=== PATIENT | male | born 1940 | race Caucasian/White ===

== ENCOUNTER 2019-01-27 12:37 | Emergency (ER) | payer MEDICARE ==
[~2019-01-27 12:37] MED LIST: ISOVUE-370 76%-LOCM 1 ML ONE
[2019-01-27 14:27] LABS: #Eosinphils 0.1 thou/uL (0.0-0.7); #Lymphocytes 0.7 thou/uL (1.20-3.40); #Monocytes 0.4 thou/uL (0.11-0.59); %Basophils 0.2 % (0.0-1.0); %Eosinophils 2.7 % (0.0-10.0); %Lymphocytes 13.1 % (21.0-51.0); %Monocytes 7.3 % (0.0-10.0); %Neutrophils 76.8 % (42.0-75.0); Hemoglobin 10.6 g/dL (14.0-18.0); Mean Corpuscular HGB CONC 33.4 g/dL (32.0-36.0); Mean Corpuscular Hemoglobin 34.7 pg (27.0-31.0); Mean Platelet Volume 7.5 fL (7.4-10.4); Platelet Count 160 thou/uL (130-400); Red Blood Cell (RBC) Count 3.06 mill/uL (4.70-6.10); White Blood Cell (WBC) Count 5.2 thou/uL (4.8-10.8)
[2019-01-27 14:50] LABS: ALT (SGPT) 8 U/L (8-55); AST (SGOT) 20 U/L (5-34); Albumin 2.7 g/dL (3.4-4.8); Alkaline Phosphatase 93 U/L (40-150); Anion Gap 12 mmol/L (10-20); BUN (Urea Nitrogen) 31 mg/dL (8.4-25.7); Bilirubin, Total 0.5 mg/dL (0.2-1.2); Calc. Creatinine Clearance 0 mL/min (70-130); Calcium 8.4 mg/dL (7.8-10.44); Carbon Dioxide 23 mmol/L (23-31); Chloride 107 mmol/L (98-107); Estimated GFR-MDRD 43; Globulin 3.1 g/dL (2.4-3.5); Glucose 86 mg/dL (83-110); Potassium 4.5 mmol/L (3.5-5.1); Protein, Total 5.8 g/dL (5.8-8.1); Sodium 137 mmol/L (136-145)
--- NOTE | 2019-01-27 15:14 | RAD ---
EXAM: XR Abdomen 2 View/1 View Cxr PROVIDED CLINICAL HISTORY: Hernia COMPARISON: Chest radiograph 12/26/2016 FINDINGS: The lungs are hypoinflated, limiting evaluation. Cardiac silhouette appears enlarged, possibly artifa ctually so. Vascular calcification is noted. No focal consolidation, pleural fluid or pneumothorax apparent. Supine and left lateral decubitus abdominal radiographs demonstrate nonspecific gaseous distention of a few loops of central abdominal small bowel. There is conspicuous rectal fecal retention demonstrated. There is no evidence for pneumoperitoneum. No radiographically apparent urinary tract c alculi. Vascular calcifications are seen. IMPRESSION: Findings suggesting small bowel obstruction or ileus.
--- NOTE | 2019-01-27 17:01 | CT ---
CT Abdomen Pelvis W Con: 01/27/2019 3:19 PM CLINICAL INFORMATION: Abdominal pain and ventral hernia COMPARISON: 08/17/2016 TECHNIQUE: Multiple contiguous axial images were obtained and a CT of the abdomen and pelvis with IV contrast. C oronal and sagittal reformats were performed. FINDINGS: Lower Chest: within normal limits. Abdomen: Liver: Cirrhotic in appearance without focal lesions Bile Ducts: Normal caliber. Gallbladder: Not visualized Pancreas: within normal limits. Spleen: within normal limits. Adrenals: within normal limits. Kidneys: Bilateral cysts measuring up to 7.5 cm in size. Pelvis: Reproductive Organs: No pelvic masses. Ureters: within normal limits. Bladder: within normal limits. Peritoneum: No free air is seen. There is a moderate amount of ascites. Bowel: Normal caliber. A few scattered diverticula are seen in the colon. Moderate stool is seen in t he rectal vault. Mesentery and Retroperitoneum: No enlarged mesenteric or retroperitoneal lymph nodes. Vessels: Atherosclerotic calcifications. Abdominal Wall: There is a 4.0 cm left inguinal hernia containing ascites and nonobstructed bowel. Th ere is a 1.7 cm umbilical hernia containing ascites. Bones: Degenerative changes in the spine. IMPRESSION: 1. Cirrhosis with moderate ascites 2. Umbilical and left inguinal hernias as above 3. Bilateral renal cysts 4. Diverticulosis
== END 2019-01-27 19:10 ==
LOC: ERS 12:37
DX: K42.9 Umbilical hernia without obstruction or gangrene (principal); K40.90 Unilateral inguinal hernia, without obstruction or gangrene, not specified as recurrent; K21.9 Gastro-esophageal reflux disease without esophagitis; M10.9 Gout, unspecified; I10 Essential (primary) hypertension; F17.220 Nicotine dependence, chewing tobacco, uncomplicated; D64.9 Anemia, unspecified; Z79.899 Other long term (current) drug therapy
CPT/HCPCS: 36415; 74022; 74177; 80053; 85025; Q9966

== ENCOUNTER 2019-03-28 13:46 | Inpatient (IN) | payer MEDICARE ==
[2019-03-28 14:51] LABS: #Eosinphils 0.1 thou/uL (0.0-0.7); #Lymphocytes 0.7 thou/uL (1.20-3.40); #Monocytes 0.7 thou/uL (0.11-0.59); #Neutrophils 12.5 thou/uL (1.40-6.50); %Basophils 0.2 % (0.0-1.0); %Eosinophils 0.4 % (0.0-10.0); %Lymphocytes 5.1 % (21.0-51.0); %Monocytes 4.7 % (0.0-10.0); %Neutrophils 89.7 % (42.0-75.0); Hemoglobin 10.7 g/dL (14.0-18.0); Mean Corpuscular HGB CONC 32.2 g/dL (32.0-36.0); Mean Platelet Volume 7.2 fL (7.4-10.4); Platelet Count 158 thou/uL (130-400); RBC Distribution Width 12.8 % (11.5-14.5); Red Blood Cell (RBC) Count 3.14 mill/uL (4.70-6.10); White Blood Cell (WBC) Count 13.9 thou/uL (4.8-10.8)
--- NOTE | 2019-03-28 14:56 | CT ---
Exam: Head CT without contrast HISTORY: Altered mental status COMPARISON: 12/26/2016 FINDINGS: Hemorrhage: No intraparenchymal hemorrhage or extra-axial hematoma. Brain parenchyma: Cortical acosta-white matter differentiation is preserved. No mass effect or midline shift. Basilar cisterns are patent.Stable hypodensities due to chronic small vessel ischemic changes of the white matter Ventricular system: Ventricles and sulci are patent and symmetric. Calvarium: Intact. Sinuses and mastoid air cells: Adequate aeration. IMPRESSION: No acute intracranial process.
--- NOTE | 2019-03-28 15:11 | RAD ---
Exam: Chest one view: HISTORY: Altered mental status COMPARISON: 03/16/2019 FINDINGS: Poor inspiratory effort with some left hemidiaphragm elevation and minimal parenchymal density in the left lower lobe evidence for some atelectasis. Chronic stable fracture dislocation proximal right humerus. No evidence for significant new intrathoracic disease. Heart size is minimally enlarged. IMPRESSION: Persistent parenchymal changes in the left retrocardiac region evidence for some atelectasis. Poor in spiration. This appearance does not appear significantly changed from 03/19/2019
[2019-03-28 15:15] LABS: ALT (SGPT) 19 U/L (8-55); AST (SGOT) 58 U/L (5-34); Albumin 2.8 g/dL (3.4-4.8); Alkaline Phosphatase 88 U/L (40-110); Anion Gap 20 mmol/L (10-20); BUN (Urea Nitrogen) 45 mg/dL (8.4-25.7); Bilirubin, Total 0.8 mg/dL (0.2-1.2); CK (CPK) 323 U/L (30-200); Calc. Creatinine Clearance 0 mL/min (70-130); Calcium 8.2 mg/dL (7.8-10.44); Carbon Dioxide 19 mmol/L (23-31); Chloride 108 mmol/L (98-107); Estimated GFR-MDRD 29; Globulin 3.2 g/dL (2.4-3.5); Glucose 100 mg/dL (83-110); Lipase 10 U/L (8-78); Potassium 4.9 mmol/L (3.5-5.1); Sodium 142 mmol/L (136-145)
[2019-03-28 17:23] LABS: Bilirubin Negative (Negative); Blood, Urine 2+ (Negative); Clarity Clear (Clear); Glucose, Urine (Dipstick) Normal (Negative); Leukocyte Negative Leu/uL (Negative); Nitrite Negative (Negative); Protein, Urine (Dipstick) 100 mg/dL (Neg-Trace); Squamous Epithelial 0-3 HPF (0-3); Urobilinogen Normal mg/dL (Less than 2)
[2019-03-28 17:28] LABS: Bacteria/HPF 1+ HPF (None Seen)
[2019-03-28] MEDS ORDERED: Acetaminophen 325 MG TAB PO PRN (17:31)
[2019-03-28] MEDS ORDERED: Acetaminophen 650 MG Suppository PR PRN (17:31)
[2019-03-28] MEDS ORDERED: Bisacodyl 5 MG TAB PO PRN (17:31)
--- NOTE | 2019-03-28 17:51 | CT ---
CT Abdomen Pelvis WO Con: 03/28/2019 4:53 PM HISTORY: Altered mental status and combativeness. Hernia surgery in January. COMPARISON: 03/19/2019 TECHNIQUE: Multiple contiguous axial images were obtained and a CT of the abdomen and pelvis without IV contrast . Coronal and sagittal reformats were performed. FINDINGS: This examination is limited for the evaluation of solid organs and vascular structures due to the lac k of intravenous contrast. Lower Chest: within normal limits. Abdomen: Liver: Nodular and cirrhotic without focal liver lesions. Bile Ducts: Normal caliber. Gallbladder: Calcified gallstones in the dependent aspect of the gallbladder. Pancreas: within normal limits. Spleen: within normal limits. Adrenals: within normal limits. Kidneys: Bilateral renal cysts measuring up to 7.7 cm in size. Pelvis: Reproductive Organs: No pelvic masses. Ureters: within normal limits. Bladder: within normal limits. Bowel: Normal caliber. No bowel wall thickening. Scattered diverticula in the colon. Mesenteric Lymph Nodes: No enlarged mesenteric lymph nodes. Peritoneum: Moderate stable ascites. Vessels: Atherosclerotic calcifications in the aorta Retroperitoneum: within normal limits. Abdominal Wall: There is a stable large 4.2 cm left inguinal hernia containing nonobstructed colon. Bones: Degenerative changes in the spine. IMPRESSION: 1. Cirrhosis with sequelae of portal hypertension. Ascites is stable compared to the prior exam. 2. Bilateral renal cysts 3. Cholelithiasis 4. Stable left inguinal hernia. 5. Diverticulosis
--- NOTE | 2019-03-28 18:10 | HP ---
PRIMARY CARE PROVIDER: Hema Zacarias MD CHIEF COMPLAINT: Altered mental status. HISTORY OF PRESENT ILLNESS: Mr. Gao is a pleasant 78-year-old gentleman, who was seen at [facility] on March 28, 2019. He was hospitalized at this facility from March 16 to March 25 of this year for a surgery for incarcerated ventral hernia. During the postoperative period, he had renal insufficiency, ileus, and hepatic encephalopathy. The patient is unable to provide any significant history. Collateral history was obtained from family members by the bedside, review of medical records, and discussion with emergency room physician. Following transfer to [facility], the patient reportedly had a bowel movement, but has not had any bowel movements in the last couple of days. The family reported that his abdominal distention has been worsening. There is no history of any fevers. There is no history of any nausea or vomiting. Today, the patient was found to be more confused than usual. He was also reportedly combative when somebody tried to wake him up. In the emergency room, the patient is arousable to voice, but falls asleep right away. REVIEW OF SYSTEMS: Could not be completed secondary to the patient's noncooperation. PAST MEDICAL HISTORY: Chronic alcohol abuse, cirrhosis, hypertension, gout, hepatic encephalopathy, and esophageal varices. PAST SURGICAL HISTORY: Cataract surgery, oral surgery, repair of incarcerated right inguinal hernia, and repair of incarcerated umbilical hernia. ALLERGIES: PENICILLIN AND ASPIRIN. HOME MEDICATIONS: These need to be clarified, but appeared to include; 1. Lorazepam. 2. Levothyroxine. 3. Lasix. 4. Allopurinol. 5. Sertraline. 6. Xifaxan. 7. Spironolactone. 8. Protonix. FAMILY HISTORY: Myocardial infarction in his father. CODE STATUS: I discussed this code status with his family members. He is full code. SOCIAL HISTORY: History of alcohol abuse in the past. No tobacco use or recreational drug use. He does not ambulate. PHYSICAL EXAMINATION: GENERAL: On examination, Mr. Gao is sleepy, but arousable, not in acute distress. VITAL SIGNS: Blood pressure is 151/82, pulse 75, respiratory rate 14, and oxygen saturation 97% on room air. He did have a low rectal temperature of 96.8 degrees Fahrenheit at 1417 hours today. EYES: No scleral icterus. No conjunctival pallor. ENT: Dry mucosal membranes. No oropharyngeal erythema or exudates. NECK: Supple, nontender, and trachea midline. RESPIRATORY: Accessory muscles of breathing are not active. Chest wall movements are symmetric bilaterally. Lungs are clear to auscultation without wheeze, rhonchi, or crepitations. CARDIOVASCULAR: S1 and S2 heard. Regular. Peripheral pulses palpable. Abdomen: Distended, nontender, and sluggish bowel sounds. SKIN: Areas of erythema over the left side of the anterior abdominal wall and a smaller area over the right side. He has spider nevi. Surgical site healing well. NEUROLOGIC: Full neurologic examination was not possible secondary to the patient's noncooperation. No facial droop. Deep tendon reflexes 2+, plantars downgoing bilaterally. MUSCULOSKELETAL: The patient could not cooperate with examination of the musculoskeletal system. LYMPHATIC: No cervical lymphadenopathy. PSYCHIATRIC: The patient is able to tell me his name, but I am unable to assess orientation to other persons, place, or time. BODY HABITUS: The patient appears malnourished. LABORATORY DATA: Mr. Gao's labs and investigations were reviewed. I reviewed his 12-lead electrocardiogram, which shows normal sinus rhythm, no ST changes to suggest an acute coronary syndrome. I also reviewed his chest x-ray, which does not show any pulmonary infiltrates. Noncontrast CT scan of the brain did not show any acute intracranial abnormality. He has a leukocytosis with 13,900 white cells, of which 89.7% of neutrophils, macrocytic anemia with hemoglobin 10.7, normal platelet count. Normal sodium, normal potassium, decreased carbon dioxide of 19, normal anion gap of 20, elevated blood urea nitrogen of 45, elevated creatinine of 2.19, estimated GFR 29 and his GFR was in the 30s in the recent past, elevated AST of 58, and normal total bilirubin. Elevated CK of 323. Normal AST and normal alkaline phosphatase. Troponin I that is less than 0.010. Lipase is normal at 10. Urine studies are pending. ASSESSMENT AND PLAN: Mr. Gao is a pleasant 78-year-old gentleman, who was seen at [facility] on March 28, 2019. His problem list includes: 1. Sepsis: Mr. Gao meets the criteria for presenting with sepsis, with hypothermia and leukocytosis as well as suspected source of infection in the urine or bloodstream. Urine studies are pending. We will start him on empiric antibiotics. 2. Abdominal distention: Given history of recent surgery, we will check CT scan of the abdomen with oral contrast. Further management depending on the outcome of the CT scan. 3. Acute on chronic stage 3 renal failure: The patient is clinically dry. We will provide gentle hydration and recheck. 4. Acute metabolic encephalopathy: Most likely secondary to infectious etiology. We will await blood cultures and urinalysis and urine cultures. 5. Hypertension: We will resume home medications once clarified, monitor vital signs and titrate antihypertensives as needed. 6. Cirrhosis: The patient has a normal ammonia level, we will continue to monitor. Many thanks for allowing me to participate in your patient's care. Please feel free to contact me with any questions or concerns. LEVEL OF RISK: High. LEVEL OF COMPLEXITY: High. Job ID: [id number] MTDD
[2019-03-28] MEDS: cefTRIAXone\\ROCEPHIN 1 GM in Sodium Chloride 0.9% 100 ML IVPB SCH (18:39)
[2019-03-28] MEDS: Sodium Chloride 0.9% 1,000 ML IV SCH (18:39)
[2019-03-28 19:25] VITALS: BMI 23.5
[2019-03-28 19:46] LABS: Lactic Acid 1.8 mmol/L (0.5-2.2)
[2019-03-28] MEDS: Heparin 5,000 UNITS/ML VIAL SC SCH (20:39)
[2019-03-29 07:06] LABS: Anion Gap 16 mmol/L (10-20); BUN (Urea Nitrogen) 42 mg/dL (8.4-25.7); Calc. Creatinine Clearance 34 mL/min (70-130); Calcium 7.9 mg/dL (7.8-10.44); Carbon Dioxide 18 mmol/L (23-31); Chloride 112 mmol/L (98-107); Estimated GFR-MDRD 34; Glucose 83 mg/dL (83-110); Potassium 4.5 mmol/L (3.5-5.1); Sodium 141 mmol/L (136-145)
[2019-03-29 07:09] LABS: #Eosinphils 0.3 thou/uL (0.0-0.7); #Lymphocytes 0.8 thou/uL (1.20-3.40); #Monocytes 0.6 thou/uL (0.11-0.59); #Neutrophils 10.7 thou/uL (1.40-6.50); %Basophils 0.3 % (0.0-1.0); %Lymphocytes 6.2 % (21.0-51.0); %Monocytes 5.1 % (0.0-10.0); %Neutrophils 86.5 % (42.0-75.0); Hemoglobin 10.2 g/dL (14.0-18.0); Mean Corpuscular HGB CONC 33.1 g/dL (32.0-36.0); Mean Corpuscular Hemoglobin 34.6 pg (27.0-31.0); Mean Platelet Volume 7.7 fL (7.4-10.4); Platelet Count 122 thou/uL (130-400); RBC Distribution Width 13.2 % (11.5-14.5); Red Blood Cell (RBC) Count 2.94 mill/uL (4.70-6.10); White Blood Cell (WBC) Count 12.4 thou/uL (4.8-10.8)
[2019-03-29] MEDS: Sodium Chloride 0.9% 1,000 ML IV SCH (07:55)
--- NOTE | 2019-03-29 08:15 | CON ---
DATE OF CONSULTATION: 03/29/2019 CONSULTING PHYSICIAN: Cricket Mancia MD REASON FOR CONSULTATION: Leukocytosis, abdominal distention, reported constipation, reported altered mental status. HISTORY OF PRESENT ILLNESS: The patient is a 78-year-old white male. He is well known to myself from recent hospitalization and surgery. On March 16, he presented with an incarcerated umbilical/ventral hernia. He had a long history of cirrhosis and ascites. I had previously repaired an incarcerated right inguinal hernia. He underwent uneventful surgery that required no bowel resection. Because of problems related to his cirrhosis and his medical comorbidities, he was hospitalized for a prolonged period of time. He had altered mental status the entire time he was hospitalized. He has a chronic history of dementia. He was, however, able eventually to advance his diet and had appropriate bowel function. He had renal insufficiency that was worsened after his ascites was aspirated during surgery as his body reaccumulated the ascites. He became hypovolemic and took a while to catch up with his fluid status. He was eventually discharged from the hospital on March 25 after a 9-day hospitalization. He returned to the emergency room from [facility] yesterday with concerns regarding altered mental status and lack of bowel movement. It had been 3 days since his discharge. In the emergency room, he underwent evaluation with laboratory and radiologic studies. His CBC showed a white blood cell count of 13.9. This is up from a white blood cell count of 6.7 five days previously. His hemoglobin was relatively stable at 10.7. His chemistry panel showed that his creatinine had gone up to 2.19, up from 1.75 five days previously. Overnight, with hydration, his creatinine has dropped down to 1.9. Other electrolytes are similar. He has a slightly elevated chloride and slightly low carbon dioxide levels. His ammonia level was within normal limits. CT scan of abdomen and pelvis was obtained. This revealed extensive ascites. There is no evidence of abdominal wound problems from his surgery. There is no evidence of bowel dilatation. On examination this morning, the patient did complain briefly of knee pain, but denies any abdominal pain. He is thoroughly confused and does not really remember if he had surgery any time recently and does not know on what part of his body the surgery was performed. He believes he recognized my face, but has no idea really who I am or that I was his surgeon. He tells me that he has not vomited and that he is hungry. He has no input regarding the status of his bowel habits. PHYSICAL EXAMINATION: VITAL SIGNS: He is afebrile, pulse is 77, and blood pressure is 135/81. LUNGS: Clear to auscultation. HEART: Regular rate and rhythm. ABDOMEN: Diffusely distended as typical for him. He has bowel sounds that are hypoactive to normoactive. He has no tenderness in any quadrant of his abdomen. His midline abdominal incision is nicely healed and nontender. He does have bruising along his left flank and I suspect it is from the settling of some bruising from his recent surgery. LABORATORY DATA: Labs are as mentioned above. ASSESSMENT AND PLAN: The patient appears to be stable from a surgical standpoint. I suspect that his reasons for admission are perhaps an exacerbation of his chronic problems related to his end-stage liver disease and his advanced cirrhosis. I am not certain why his white blood cell count is elevated. It does not seem like he has findings consistent with any peritonitis, but aspiration of the fluid with a paracentesis may be appropriate. For now, he may advance his diet as tolerated. As today is Monday and there is no surgical concern at this time, I will examine him again on Monday. If surgical input is necessary over the weekend, please contact the surgeon on-call. Job ID: [id number]
[2019-03-29] MEDS: Heparin 5,000 UNITS/ML VIAL SC SCH ×3 (09:55→20:30)
[2019-03-29] MEDS: Lactated Ringer's 1,000 ML IV SCH (10:56)
[2019-03-29] MEDS ORDERED: Fleet Enema 133 ML BOT FS SCH (12:45)
[2019-03-29] MEDS: cefTRIAXone\\ROCEPHIN 1 GM in Sodium Chloride 0.9% 100 ML IVPB SCH (15:47)
--- NOTE | 2019-03-29 16:14 | PDOC.HOSPP ---
- Subjective Encounter Date: 03/29/19 Encounter Time: 08:20 Subjective: Pt seen for followup re; sepsis. Awake and alert, oriented to person only. Not answering questions reliably, could not complete ROS. - Objective Vital Signs & Weight: Vital Signs (12 hours) Temp Pulse Resp BP Pulse Ox 03/29/19 11:32 97.6 F 84 16 133/77 98 03/29/19 07:48 97.7 F 77 16 135/81 100 Weight Admit Weight 168 lb 8 oz Weight 168 lb 8 oz Result Diagrams: 03/29/19 07:00 03/29/19 05:48 Additional Labs: Labs and MARs reviewed by hi Hospitalist ROS - Medication Medications: Active Medications Generic Name Dose Route Start Last Admin Trade Name Freq PRN Reason Stop Dose Admin Heparin Sodium (Porcine) 5,000 units 03/28/19 21:00 03/29/19 14:29 Heparin SC 5,000 units TID CECILE Administration Ceftriaxone Sodium 1 gm/ 100 mls @ 200 mls/hr 03/28/19 18:00 03/29/19 15:47 Sodium Chloride IVPB 100 mls Q24HR CECILE Administration Lactated Ringer's 1,000 mls @ 50 mls/hr 03/29/19 08:00 03/29/19 10:56 Lactated Ringer's IV 1,000 mls .Q20H CECILE Administration - Exam General Appearance: NAD, awake alert Eye: anicteric sclera ENT: moist mucosa Neck: supple Heart: RRR Respiratory: CTAB, no rales Gastrointestinal: soft, non-tender, normal bowel sounds, distended Extremities: no clubbing Musculoskeletal: diffuse muscle atrophy Psychiatric: normal affect, normal behavior Hosp A/P (1) Sepsis Code(s): A41.9 - SEPSIS, UNSPECIFIED ORGANISM Status: Acute (2) Ascites Code(s): R18.8 - OTHER ASCITES Status: Chronic (3) Chronic kidney disease, stage 3 Code(s): N18.3 - CHRONIC KIDNEY DISEASE, STAGE 3 (MODERATE) Status: Chronic (4) Alcoholic cirrhosis of liver Code(s): K70.30 - ALCOHOLIC CIRRHOSIS OF LIVER WITHOUT ASCITES Status: Chronic (5) Gout Code(s): M10.9 - GOUT, UNSPECIFIED Status: Chronic (6) Hypertension Code(s): I10 - ESSENTIAL (PRIMARY) HYPERTENSION Status: Chronic (7) Transaminitis Code(s): R74.0 - NONSPEC ELEV OF LEVELS OF TRANSAMNS & LACTIC ACID DEHYDRGNSE Status: Chronic - Plan continue antibiotics, out of bed/ambulate Continue IV ceftriaxone. Follow blood cultures. CKD stable. Consult GI re: ascites. Nil acute on CT abdo/pelvis.Appreciate general surgery input.
[2019-03-29] MEDS: Rifaximin 550 MG TAB PO SCH (20:30)
--- NOTE | 2019-03-29 23:18 | CON ---
DATE OF CONSULTATION: 03/29/2019 REQUESTING PHYSICIAN: Dr. Mancia. REASON FOR CONSULTATION: Ascites. HISTORY OF PRESENT ILLNESS: Terrence Gao is a 78-year-old man who has previously been seen by my GI colleague to Dr. Jarrell Pena. The patient has a history of cirrhosis, which is secondary to prior alcohol abuse as well as chronic dementia with what has been characterized as Wernicke encephalopathy. He has a prior history of esophageal varices. He is also known to have chronic ascites. At one point, he was on lactulose and rifaximin, though it appears only rifaximin is on his outpatient med list at this time. He also is on Lasix and spironolactone evidently as an outpatient. He recently had an extended hospitalization here after undergoing surgery for an incarcerated ventral hernia; that hospitalization was complicated by fluctuations in mental status as well as some degree of acute on chronic renal failure. He had 4 L of ascites removed during that surgery. He was able to be discharged on 03/25/2019. He was sent back from [facility] last night due to concerns about worsening mental status, increased combativeness. It was reported that he had not had a bowel movement for a couple of days and that his abdomen was perhaps a bit more distended. Upon arrival, he was found to have a mild leukocytosis to 13, and a bit of creatinine elevation to 2. He was treated with ceftriaxone, received a dose of lactulose and also an enema. He had a good bowel movement. Per nursing and surgical staff today, the patient is back to his baseline mental status. He is not complaining of any abdominal pain. He has had no nausea or vomiting. He is tolerating his diet. REVIEW OF SYSTEMS: Full review of systems including constitutional, head, eyes, ears, nose, throat, GI, , cardiovascular, respiratory, musculoskeletal, neurologic systems is negative except as noted in the HPI. PAST MEDICAL HISTORY: 1. 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 2. Right inguinal hernia repair. 3. Umbilical hernia repair on 03/16/2019. 4. Alcoholic cirrhosis. 5. Esophageal varices. 6. Chronic ascites. 7. Gout. 8. Hypertension. 9. History of hepatic encephalopathy, currently with normal ammonia level. ALLERGIES: ASPIRIN AND PENICILLIN G. MEDICATIONS: Outpatient medications list includes; 1. Vitamin D3, 5000 units daily. 2. Allopurinol. 3. Tylenol p.r.n. 4. Levothyroxine. 5. Furosemide, unknown dose daily. 6. Spironolactone 25 mg daily. 7. Folic acid 1 mg daily. 8. Ferrous sulfate 325 mg daily. 9. Voltaren gel. 10. Thiamine 100 mg daily. 11. Protonix 40 mg daily. 12. Multivitamin with minerals daily. 13. Ativan p.r.n. 14. Sertraline 25 mg daily. 15. Rifaximin 550 mg p.o. b.i.d. Inpatient medications: Ceftriaxone 1 g IV q.24 hours. FAMILY HISTORY: Father had myocardial infarction. SOCIAL HISTORY: The patient has a prior history of alcohol abuse. He is a long-term resident of [facility]. No smoking. No drug use. PHYSICAL EXAMINATION: VITAL SIGNS: Temperature 97.6, pulse 84, blood pressure 133/77, 98% oxygen saturation on room air. GENERAL: 78-year-old man lying in bed comfortably, in no distress. MENTAL: He is alert and awake. He is oriented to person. His answers are tangential and not completely appropriate to the question asked. However, he is able to deny symptoms specifically for me. SKIN: No jaundice. No rashes were palpable. EYES: No scleral icterus. Extraocular movements intact. ENT: Mucous membranes moist. No oral lesions. LYMPH: No submandibular or supraclavicular lymphadenopathy. THYROID: Nontender to palpation. HEART: Regular rate and rhythm. LUNGS: Clear to auscultation bilaterally. ABDOMEN: Moderate distention, dull to percussion. Positive fluid wave, but the abdomen is not tense. It is quite soft, is nontender to palpation throughout. There is no guarding rebound tenderness. EXTREMITIES: No peripheral edema. VESSELS: Radial pulses 2+ bilaterally. NEURO: Cranial nerves 2-12 intact bilaterally. No focal deficits. LABORATORY STUDIES: WBC 12.4, hemoglobin 10.2, platelets 122. Sodium 141, potassium 4.5, BUN 42, creatinine 1.91, glucose 83. Ammonia only 22. Troponin negative. Lactic acid only 1.8. Lipase only 10. Total bilirubin 0.8, alkaline phosphatase 88, AST 58, ALT 19, albumin 2.8. Urinalysis shows 4-6 wbc's. Blood and urine cultures show no growth to date. IMAGING STUDIES: Chest x-ray showed some chronic left-sided atelectasis. Head CT showed no acute processes. CT of the abdomen and pelvis performed yesterday demonstrated cirrhotic liver configuration with no mass. There were gallstones in the gallbladder, but normal bile ducts, normal spleen, normal bowel, stable ascites and a 4.2 cm left inguinal hernia. ASSESSMENT AND PLAN: 1. Chronic ascites. 2. Leukocytosis. 3. Altered mental status, on baseline Wernicke dementia. I have not met the patient before, but per nursing staff and surgical staff, his mental status appears to be around his baseline today. He is certainly not combative for me. There is no asterixis. I note a normal ammonia level. I do not think this represents any exacerbation of hepatic encephalopathy. I would recommend that his rifaximin be continued and also that he receive lactulose 20 g at least once daily. Regarding the ascites, this appears to be chronic, for which he is on diuretics at the senior care. His abdomen is not tense and not tender, and I had very low suspicion for spontaneous bacterial peritonitis. I do not think a paracentesis is necessary at this time. I would resume the patient's diuretics tomorrow if able from a renal point of view. I do not anticipate we will have to do much further this hospitalization, and hopefully he can be discharged back to the [facility] in the next day or two. Thank you for the consultation. Please call anytime with questions or concerns. Job ID: [id number]
[2019-03-30] MEDS: Lactated Ringer's 1,000 ML IV SCH ×2 (04:48→12:15)
[2019-03-30 05:43] LABS: Anion Gap 12 mmol/L (10-20); BUN (Urea Nitrogen) 39 mg/dL (8.4-25.7); Calc. Creatinine Clearance 38 mL/min (70-130); Carbon Dioxide 22 mmol/L (23-31); Chloride 112 mmol/L (98-107); Estimated GFR-MDRD 39; Glucose 87 mg/dL (83-110); Sodium 142 mmol/L (136-145)
[2019-03-30 06:14] LABS: #Eosinphils 0.2 thou/uL (0.0-0.7); #Lymphocytes 0.8 thou/uL (1.20-3.40); #Monocytes 0.6 thou/uL (0.11-0.59); #Neutrophils 7.7 thou/uL (1.40-6.50); %Basophils 0.3 % (0.0-1.0); %Lymphocytes 8.5 % (21.0-51.0); %Monocytes 6.5 % (0.0-10.0); %Neutrophils 82.7 % (42.0-75.0); Hemoglobin 9.3 g/dL (14.0-18.0); MDiff Complete? YES; Macrocytosis SLIGHT = 6-15 cells (100X) (0-5/hpf); Mean Corpuscular HGB CONC 32.6 g/dL (32.0-36.0); Mean Corpuscular Hemoglobin 34.1 pg (27.0-31.0); Mean Platelet Volume 7.3 fL (7.4-10.4); Platelet Count 158 thou/uL (130-400); Platelet Morphology Comment Appears Adequate; RBC Distribution Width 13.3 % (11.5-14.5); Red Blood Cell (RBC) Count 2.72 mill/uL (4.70-6.10); White Blood Cell (WBC) Count 9.3 thou/uL (4.8-10.8)
--- NOTE | 2019-03-30 09:13 | PRG ---
DATE OF SERVICE: 03/30/2019 SUBJECTIVE: No acute events overnight. Mr. Gao says he is feeling fine today. He denies any abdominal pain or nausea. He is tolerating his diet. OBJECTIVE: VITAL SIGNS: Temperature 98.0, pulse 83, blood pressure 146/78, and 95% oxygen saturation on room air. GENERAL: No acute distress. HEART: Regular rate and rhythm. LUNGS: Clear to auscultation bilaterally. ABDOMEN: Distended with ascites, but not tense. Bowel sounds present. Nontender to palpation throughout. EXTREMITIES: No peripheral edema. LABORATORY STUDIES: WBC down to 9.3, hemoglobin 9.3, and platelets 158. Sodium 142, potassium 4.0, BUN 39, and creatinine down to 1.72, which is below his baseline. ASSESSMENT AND PLAN: 1. Chronic ascites. The patient has no signs concerning for peritonitis. Creatinine is at or below recent baseline. I would start back his diuretics. It appears that he was on Lasix 20 mg daily and spironolactone 25 mg daily. 2. Leukocytosis, now resolved. 3. Altered mental status, on baseline Wernicke dementia. He is apparently at his baseline mental status. He is calm and non-combative. I would continue with rifaximin as well as once daily lactulose. Nothing further from a GI perspective, and he could probably be discharged back to his long term. Follow up in our office with Dr. Pena or his physician dietary assistant in the next few weeks. Job ID: [id number]
[2019-03-30] MEDS ORDERED: Spironolactone 25 MG TAB PO SCH (09:30)
[2019-03-30] MEDS: Furosemide 20 MG TAB PO SCH (09:35)
[2019-03-30] MEDS: Rifaximin 550 MG TAB PO SCH ×2 (09:35→19:34)
[2019-03-30] MEDS: Heparin 5,000 UNITS/ML VIAL SC SCH ×3 (09:35→19:34)
--- NOTE | 2019-03-30 11:46 | PDOC.HOSPP ---
- Subjective Encounter Date: 03/30/19 Encounter Time: 10:20 Subjective: Expresses no complaint.. Confused. - Objective Vital Signs & Weight: Vital Signs (12 hours) Temp Pulse Resp BP BP Pulse Ox 03/30/19 09:35 100 03/30/19 09:30 98 F 86 14 157/91 H 100 03/30/19 04:25 98.0 F 83 20 146/78 H 95 Weight Admit Weight 168 lb 8 oz Weight 168 lb 8 oz I&O: 03/29/19 03/30/19 03/31/19 06:59 06:59 06:59 Intake Total 950 Balance 950 Result Diagrams: 03/30/19 04:37 03/30/19 04:37 Hospitalist ROS - Medication Medications: Active Medications Generic Name Dose Route Start Last Admin Trade Name Freq PRN Reason Stop Dose Admin Furosemide 20 mg 03/30/19 09:00 03/30/19 09:35 Lasix PO 20 mg DAILY CECILE Administration Heparin Sodium (Porcine) 5,000 units 03/28/19 21:00 03/30/19 09:35 Heparin SC 5,000 units TID CECILE Administration Ceftriaxone Sodium 1 gm/ 100 mls @ 200 mls/hr 03/28/19 18:00 03/29/19 15:47 Sodium Chloride IVPB 100 mls Q24HR CECILE Administration Lactated Ringer's 1,000 mls @ 50 mls/hr 03/29/19 08:00 03/30/19 04:48 Lactated Ringer's IV 1,000 mls .Q20H CECILE Administration Lactulose 20 gm 03/30/19 09:00 03/30/19 09:35 Lactulose PO 20 gm DAILY CECILE Administration Rifaximin 550 mg 03/29/19 21:00 03/30/19 09:35 Xifaxan PO 550 mg BID CECILE Administration - Exam Neck: no JVD Heart: RRR Respiratory: CTAB Gastrointestinal: soft Gastrointestinal - other findings: Shifting dullness.. Extremities: 1+ LE edema Hosp A/P (1) Sepsis Code(s): A41.9 - SEPSIS, UNSPECIFIED ORGANISM Status: Acute (2) Ascites Code(s): R18.8 - OTHER ASCITES Status: Chronic (3) Chronic kidney disease, stage 3 Code(s): N18.3 - CHRONIC KIDNEY DISEASE, STAGE 3 (MODERATE) Status: Chronic (4) Alcoholic cirrhosis of liver Code(s): K70.30 - ALCOHOLIC CIRRHOSIS OF LIVER WITHOUT ASCITES Status: Chronic (5) Gout Code(s): M10.9 - GOUT, UNSPECIFIED Status: Chronic (6) Hypertension Code(s): I10 - ESSENTIAL (PRIMARY) HYPERTENSION Status: Chronic (7) Acute kidney injury superimposed on chronic kidney disease Code(s): N17.9 - ACUTE KIDNEY FAILURE, UNSPECIFIED; N18.9 - CHRONIC KIDNEY DISEASE, UNSPECIFIED Status: Acute Plan: Kidney function is improving.. - Plan Continue antibiotics. f/u BxC F/U chemistry..
[2019-03-30] MEDS: cefTRIAXone\\ROCEPHIN 1 GM in Sodium Chloride 0.9% 100 ML IVPB SCH (17:29)
[2019-03-31] MEDS: Lactated Ringer's 1,000 ML IV SCH (05:28)
[2019-03-31 06:54] LABS: #Eosinphils 0.2 thou/uL (0.0-0.7); #Lymphocytes 0.7 thou/uL (1.20-3.40); #Monocytes 0.6 thou/uL (0.11-0.59); #Neutrophils 6.4 thou/uL (1.40-6.50); %Basophils 0.3 % (0.0-1.0); %Eosinophils 2.1 % (0.0-10.0); %Lymphocytes 9.3 % (21.0-51.0); %Neutrophils 81.3 % (42.0-75.0); Hemoglobin 9.5 g/dL (14.0-18.0); Mean Corpuscular HGB CONC 32.8 g/dL (32.0-36.0); Mean Corpuscular Hemoglobin 35.1 pg (27.0-31.0); Mean Platelet Volume 6.6 fL (7.4-10.4); Platelet Count 158 thou/uL (130-400); RBC Distribution Width 13.3 % (11.5-14.5); White Blood Cell (WBC) Count 7.9 thou/uL (4.8-10.8)
[2019-03-31 07:12] LABS: Anion Gap 13 mmol/L (10-20); BUN (Urea Nitrogen) 34 mg/dL (8.4-25.7); Calc. Creatinine Clearance 42 mL/min (70-130); Calcium 7.8 mg/dL (7.8-10.44); Carbon Dioxide 21 mmol/L (23-31); Chloride 112 mmol/L (98-107); Estimated GFR-MDRD 43; Glucose 90 mg/dL (83-110); Potassium 3.8 mmol/L (3.5-5.1); Sodium 142 mmol/L (136-145)
[2019-03-31] MEDS: Spironolactone 25 MG TAB PO SCH (08:46)
[2019-03-31] MEDS: Furosemide 20 MG TAB PO SCH (08:46)
[2019-03-31] MEDS: Rifaximin 550 MG TAB PO SCH ×2 (08:46→21:31)
[2019-03-31] MEDS: Heparin 5,000 UNITS/ML VIAL SC SCH ×3 (08:46→21:31)
--- NOTE | 2019-03-31 10:14 | PDOC.HOSPP ---
- Subjective Encounter Date: 03/31/19 Encounter Time: 10:00 Subjective: Comfortable, alert, confused. - Objective Vital Signs & Weight: Vital Signs (12 hours) Temp Pulse Resp BP Pulse Ox 03/31/19 08:50 100 03/31/19 07:37 97.8 F 85 18 153/85 H 100 Weight Admit Weight 168 lb 8 oz Weight 168 lb 8 oz I&O: 03/30/19 03/31/19 04/01/19 06:59 06:59 06:59 Intake Total 950 2140 Balance 950 2140 Result Diagrams: 03/31/19 06:42 03/31/19 06:42 Hospitalist ROS - Medication Medications: Active Medications Generic Name Dose Route Start Last Admin Trade Name Freq PRN Reason Stop Dose Admin Acetaminophen 650 mg 03/28/19 17:31 03/30/19 14:59 Tylenol PO 650 mg Q4H PRN Administration Headache/Fever/Mild Pain (1-3) Furosemide 20 mg 03/30/19 09:00 03/31/19 08:46 Lasix PO 20 mg DAILY CECILE Administration Heparin Sodium (Porcine) 5,000 units 03/28/19 21:00 03/31/19 08:46 Heparin SC 5,000 units TID CECILE Administration Ceftriaxone Sodium 1 gm/ 100 mls @ 200 mls/hr 03/28/19 18:00 03/30/19 17:29 Sodium Chloride IVPB 100 mls Q24HR CECILE Administration Lactated Ringer's 1,000 mls @ 50 mls/hr 03/29/19 08:00 03/31/19 05:28 Lactated Ringer's IV 1,000 mls .Q20H CECILE Administration Lactulose 20 gm 03/30/19 09:00 03/31/19 08:46 Lactulose PO 20 gm DAILY CECILE Administration Rifaximin 550 mg 03/29/19 21:00 03/31/19 08:46 Xifaxan PO 550 mg BID CECILE Administration Spironolactone 25 mg 03/31/19 08:00 03/31/19 08:46 Aldactone PO 25 mg QAM-WM CECILE Administration - Exam Neck: no JVD Heart: RRR Respiratory: CTAB Gastrointestinal: soft Extremities: no edema Neurological: no focal deficits Hosp A/P (1) Sepsis Code(s): A41.9 - SEPSIS, UNSPECIFIED ORGANISM Status: Acute (2) Ascites Code(s): R18.8 - OTHER ASCITES Status: Chronic (3) Chronic kidney disease, stage 3 Code(s): N18.3 - CHRONIC KIDNEY DISEASE, STAGE 3 (MODERATE) Status: Chronic (4) Alcoholic cirrhosis of liver Code(s): K70.30 - ALCOHOLIC CIRRHOSIS OF LIVER WITHOUT ASCITES Status: Chronic (5) Gout Code(s): M10.9 - GOUT, UNSPECIFIED Status: Chronic (6) Hypertension Code(s): I10 - ESSENTIAL (PRIMARY) HYPERTENSION Status: Chronic (7) Acute kidney injury superimposed on chronic kidney disease Code(s): N17.9 - ACUTE KIDNEY FAILURE, UNSPECIFIED; N18.9 - CHRONIC KIDNEY DISEASE, UNSPECIFIED Status: Acute Plan: improving.. - Plan Continue antibiotics. BxC negative so far.. GAYE improving. F/U chemistry..
[2019-03-31] MEDS: cefTRIAXone\\ROCEPHIN 1 GM in Sodium Chloride 0.9% 100 ML IVPB SCH (17:14)
[2019-03-31] MEDS ORDERED: Melatonin 3 MG TAB PO PRN (20:12)
[2019-04-01] MEDS: Lactated Ringer's 1,000 ML IV SCH (05:09)
[2019-04-01 06:03] LABS: Anion Gap 12 mmol/L (10-20); BUN (Urea Nitrogen) 31 mg/dL (8.4-25.7); Calc. Creatinine Clearance 45 mL/min (70-130); Calcium 7.9 mg/dL (7.8-10.44); Carbon Dioxide 23 mmol/L (23-31); Chloride 112 mmol/L (98-107); Estimated GFR-MDRD 47; Glucose 90 mg/dL (83-110); Potassium 3.5 mmol/L (3.5-5.1); Sodium 143 mmol/L (136-145)
[2019-04-01 08:50] VITALS: TEMP 97.3
[2019-04-01] MEDS: Heparin 5,000 UNITS/ML VIAL SC SCH (09:46)
[2019-04-01] MEDS: Furosemide 20 MG TAB PO SCH (09:48)
[2019-04-01] MEDS: Rifaximin 550 MG TAB PO SCH (09:48)
[2019-04-01] MEDS: Spironolactone 25 MG TAB PO SCH (09:48)
--- NOTE | 2019-04-01 16:31 | PRG ---
DATE OF SERVICE: 04/01/2019 SUBJECTIVE: Mr. Gao remains hospitalized on the medical floor. I saw him on Monday (today is Monday). He certainly appeared to be stable from a surgical standpoint. records and examining the patient reveal no evidence of concerning problems. It is noted that he has been afebrile over the weekend. Vital signs have been essentially normal for him. He tells me he has been eating well and having bowel movements and has not vomited. He denies any pain. It is noted that Dr. Craig saw him from a gastroenterology standpoint over the weekend as well. From a laboratory standpoint, his CBC reveals that his white blood cell count is normal at 7.9 with a hemoglobin of 9.5. He still has a left shift however. His chemistry panel reveals that his electrolytes have almost normalized. His creatinine is down to 1.45, which is the lowest that has been since I have seen him. OBJECTIVE: LUNGS: Clear. ABDOMEN: Benign. Incision has nicely healed. Bowel sounds are normoactive. ASSESSMENT AND PLAN: He is stable from a surgical standpoint following repair of his incarcerated ventral hernia. His problem seemed to be ongoing manifestations of his cirrhosis/ascites/or acute encephalopathy, etc. I have no further input at this time. I would still like to see him in a couple of weeks after discharge for routine surgical followup. Job ID: [id number]
[2019-04-01 17:38] VITALS: BP 152/82
--- NOTE | 2019-04-03 21:35 | PQF ---
JAYDA ALBERTO MICHAEL W MD [id number] CLINICAL DOCUMENTATION CLARIFICATION FORM: POST DISCHARGE Addendum to original discharge summary date: ____ Late entry note date: __ DATE: 04/03/2019 ATTN:LILLY SANFORD MD Please exercise your independent, professional judgment in responding to the clarification form. Clinical indicators are provided on the bottom of this form for your review Please check appropriate box(s): [ ] Sepsis was due to complication of recent surgery [ x ] Sepsis was not due to complication of recent surgery [ ] Other diagnosis [ ] Unable to determine In addition, please specify: Present on Admission (POA): [ ] Yes [ ] No [ x ] Unable to determine CLINICAL INDICATORS - SIGNS / SYMPTOMS / LABS AMS - Documented in H&P on 03/28 by Gavino Harley MD Acute metabolic encephalopathy - Documented in H&P on 03/28 by Gavino Hraley MD WBC 13.9 on 03/28 - Documented in Laboratory results Hypothermia and leukocytosis as well as suspected source of urine infection in the urine or blood stream - Documented in H&P on 03/28 by Gvaino Harley MD Sepsis - Documented in H&P on 03/28 by Gavino Harley MD His ascites was aspirated during surgery as his body reaccumulated the ascites - Documented in Consult note on 03/29 by Cricket willson MD He had 4L of ascites removing during surgery - Documented in Consult note on by Gavino Harley MD [employer] He was hospitalized from March 16 to March 28 2019 for a surgery for incarcerated ventral hernia - Documented in H&P on 03/28 by Gavino Harley MD During Post operative period he had renal insufficiency, ileus and hepatic encephalopathy - Documented in H&P on 03/28 by Gavino Harley MD GAYE on CKD 3 - Documented in H&P on 03/28 by Gavino Harley MD TREATMENT: CT abdomen and pelvis revealed extensive ascites - Documented in Consult note on 03/29 by Cricket willson MD Continue IV ceftriaxone - Documented in Hospital PNs on 04/01 by Cricket Willson Consult GI re: Ascites - Documented in Hospital PNs on 04/01 by Cricket Willson I would start back his diuretics,it appears that he was on Lasix 20 mg daily and spironolactone 25 mg daily - Documented in PNs on 03/30 by Rafa 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 All Rights Reserved Laina [email or web address] [not provided] MTDD
== END 2019-04-01 17:56 | DRG 871 ==
LOC: ERS 13:46 → T4-A 18:17
PROVIDERS: ADMIT Internal Medicine; ATTEND Internal Medicine
DX: A41.9 Sepsis, unspecified organism (principal); G93.41 Metabolic encephalopathy; N17.9 Acute kidney failure, unspecified; I13.0 Hypertensive heart and chronic kidney disease with heart failure and stage 1 through stage 4 chronic kidney disease, or unspecified chronic kidney disease; I50.20 Unspecified systolic (congestive) heart failure; M10.9 Gout, unspecified; N18.3 Chronic kidney disease, stage 3 (moderate); F03.90 Unspecified dementia, unspecified severity, without behavioral disturbance, psychotic disturbance, mood disturbance, and anxiety; Z98.49 Cataract extraction status, unspecified eye; K70.31 Alcoholic cirrhosis of liver with ascites
CPT/HCPCS: 36415; 51701; 70450; 71045; 74176; 80048; 80053; 81003; 81015; 82140; 82550; 83605; 83690; 84484; 85025; 87040; 87086; 93005; 94760; 96360; 96361; J0696; J1644; J3490

== ENCOUNTER 2019-08-06 19:34 | Emergency (ER) | payer MEDICARE, BC ==
--- NOTE | 2019-08-06 20:36 | CT ---
CT OF THE BRAIN WITHOUT CONTRAST: 08/06/19 INDICATION: History of fall with no neck or back pain but a laceration to the head. COMPARISON: Prior CT of the brain dated 03/28/19. FINDINGS: There is generalized cerebral and cerebellar atrophy with moderate chronic small vessel white matter ischemic change which appears similar to the prior exam. Septum pellucidum and third ventricle are mi dline. No acute infarct, hemorrhage or hydrocephalus is present. Mastoid air cells are clear. There i s a prominent amount of cerumen build up within both ears. The majority of the paranasal sinuses are clear. There is mild mucosal thickening in a few left sided ethmoid air cells. IMPRESSION: 1. No acute intracranial abnormality. 2. Mild generalized cerebral and cerebellar atrophy with stable moderate chronic small vessel wh ite matter ischemic change. 3. Prominent amount of cerumen build up within the external auditory canals. 4. Mild paranasal sinus disease. POS: BH
[2019-08-06 20:57] LABS: Hemoglobin 10.3 g/dL (14.0-18.0); Mean Corpuscular HGB CONC 33.3 g/dL (32.0-36.0); Mean Platelet Volume 7.4 fL (7.4-10.4); Platelet Count 200 thou/uL (130-400); RBC Distribution Width 13.5 % (11.5-14.5); Red Blood Cell (RBC) Count 2.86 mill/uL (4.70-6.10); White Blood Cell (WBC) Count 5.5 thou/uL (4.8-10.8)
[2019-08-06 21:08] LABS: ALT (SGPT) 9 U/L (8-55); AST (SGOT) 21 U/L (5-34); Albumin 2.9 g/dL (3.4-4.8); Alkaline Phosphatase 90 U/L (40-110); Anion Gap 15 mmol/L (10-20); BUN (Urea Nitrogen) 47 mg/dL (8.4-25.7); Bilirubin, Total 0.3 mg/dL (0.2-1.2); Calc. Creatinine Clearance 0 mL/min (70-130); Calcium 8.4 mg/dL (7.8-10.44); Carbon Dioxide 20 mmol/L (23-31); Chloride 108 mmol/L (98-107); Estimated GFR-MDRD 36; Globulin 3.8 g/dL (2.4-3.5); Glucose 98 mg/dL (83-110); Potassium 4.1 mmol/L (3.5-5.1); Protein, Total 6.7 g/dL (5.8-8.1); Sodium 139 mmol/L (136-145)
[2019-08-06 21:17] LABS: #Eosinphils 0.4 thou/uL (0.0-0.7); #Monocytes 0.5 thou/uL (0.11-0.59); #Neutrophils 3.6 thou/uL (1.40-6.50); %Basophils 0.9 % (0.0-1.0); %Eosinophils 8.1 % (0.0-10.0); %Lymphocytes 17.6 % (21.0-51.0); %Monocytes 8.9 % (0.0-10.0); %Neutrophils 64.6 % (42.0-75.0); MDiff Complete? YES; Macrocytosis SLIGHT = 6-15 cells (100X) (0-5/hpf); Platelet Morphology Comment Appears Adequate
== END 2019-08-06 22:23 | disposition home or self-care (01) ==
LOC: ERS 19:34
DX: S01.01XS Laceration without foreign body of scalp, sequela (principal); I11.0 Hypertensive heart disease with heart failure; I50.20 Unspecified systolic (congestive) heart failure; D64.9 Anemia, unspecified; K21.9 Gastro-esophageal reflux disease without esophagitis; M10.9 Gout, unspecified; E03.9 Hypothyroidism, unspecified; F41.9 Anxiety disorder, unspecified; F17.220 Nicotine dependence, chewing tobacco, uncomplicated; Z79.899 Other long term (current) drug therapy; W01.198A Fall on same level from slipping, tripping and stumbling with subsequent striking against other object, initial encounter
CPT/HCPCS: 12001; 36415; 70450; 80053; 85025; 93005